=== PATIENT | male | born 1965 ===

== ENCOUNTER 2020-04-23 05:30 | Day surgery (SDC) | payer OTHER ==
[~2020-04-23 05:30] MED LIST: COZAAR50 MG PO; LIPITOR20 MG PO
[2020-04-23] MEDS ORDERED: DERMOPLAST PAIN78 GM TOP (08:42)
[2020-04-23] MEDS ORDERED: PERCOCET 5-3251 EACH PO (08:42)
[2020-04-23] MEDS ORDERED: KETO10TA2 PO (08:43)
[2020-04-23] MEDS ORDERED: NEURONTIN300 MG PO (08:43)
== END 2020-04-23 13:15 | disposition home or self-care (01) ==
LOC: EDSEX 05:30 → CIR.AMB 05:30
PROVIDERS: ATTEND Surgery
DX: K60.3 Anal fistula (principal); Z20.822 Contact with and (suspected) exposure to COVID-19